=== PATIENT | male | born 1965 | race Caucasian/White ===

== ENCOUNTER 2020-02-08 05:23 | Day surgery (SDC) | payer OTHER ==
[2020-02-05 12:09] VITALS: BMI 33.4
[2020-02-08 08:30] VITALS: TEMP 97.8
[2020-02-08 09:11] VITALS: BP 125/62; PULSE 58
== END 2020-02-08 09:30 | disposition home or self-care (01) ==
LOC: JASU-ENDO 05:23
PROVIDERS: ATTEND Internal Medicine Gastroenterology
PROC: 0DBH8ZX Excision of Cecum, Via Natural or Artificial Opening Endoscopic, Diagnostic (ICD-10-PCS; 2020-02-08)
PROC: 0DBP8ZX Excision of Rectum, Via Natural or Artificial Opening Endoscopic, Diagnostic (ICD-10-PCS; principal; 2020-02-08 08:00)
DX: Z12.11 Encounter for screening for malignant neoplasm of colon (principal); Z86.010 Personal history of colon polyps; K62.1 Rectal polyp; D12.0 Benign neoplasm of cecum; K64.8 Other hemorrhoids
CPT/HCPCS: 88305-TC